=== PATIENT | male | born 1960 | race Two or more races ===

== ENCOUNTER 2022-01-27 13:11 | Emergency (ER) | payer SELFPAY ==
[~2022-01-27] VITALS: Ht 193 cm; Wt 81.6 kg
[2022-01-27 13:43] VITALS: BP 135/87
[2022-01-27] MEDS ORDERED: SODIUM CHLORIDE 0.9% 1,000 ML IV ONE (13:45)
== END 2022-01-27 16:50 | disposition left against medical advice (07) ==
LOC: ER 13:11
DX: R41.82 Altered mental status, unspecified (principal); F10.129 Alcohol abuse with intoxication, unspecified; Y90.9 Presence of alcohol in blood, level not specified; Z53.29 Procedure and treatment not carried out because of patient's decision for other reasons
CPT/HCPCS: 70450; 71045; 93005